=== PATIENT | male | born 1970 ===

== ENCOUNTER 2018-06-13 17:12 | Emergency (ER) | payer OTHER ==
[~2018-06-13] VITALS: Ht 167.6 cm; Wt 65.8 kg
[2018-06-13] MEDS ORDERED: INTESTINEX680 M1 PO (23:50)
[2018-06-13] MEDS ORDERED: PEPCID AC20 MG PO (23:50)
[2018-06-13] MEDS ORDERED: LEVSIN/SL0.125 MG SL (23:50)
== END 2018-06-14 00:05 | disposition home or self-care (01) ==
LOC: ER 17:12
DX: K30 Functional dyspepsia (principal)